=== PATIENT | female | born 1930 | race Asian ===

== ENCOUNTER 2018-01-23 15:10 | Inpatient (IN) | payer MEDICARE, OTHER ==
[~2018-01-23] VITALS: Ht 157.5 cm; Wt 87.5 kg
--- NOTE | 2018-01-23 20:45 | NUR ---
ADMITTED TO ARU FROM [facility] UNDER DR. YAN/ DR. LOZANO. WILL INITIATE ADMISSION ASSESSMENT. BELONGING LISTS REVIEWED. WILL CALL FOR ORDERS.
[2018-01-23] MEDS ORDERED: ACET325T53 PO (21:11)
[2018-01-23] MEDS ORDERED: ASPI81TA31 PO (21:11)
[2018-01-23] MEDS ORDERED: INSU100V10 SQ (21:19)
[2018-01-23] MEDS ORDERED: ERGO500014 PO (21:19)
[2018-01-23] MEDS ORDERED: FURO40TA5 PO (21:19)
[2018-01-23] MEDS ORDERED: ATOR10TA PO (21:19)
[2018-01-23] MEDS ORDERED: FOLI1TAB16 PO (21:19)
[2018-01-23] MEDS ORDERED: DOCU100C36 PO (21:19)
[2018-01-23] MEDS ORDERED: LEVO75TA7 PO (21:32)
[2018-01-23] MEDS ORDERED: NITR0.4T48 SL (21:32)
[2018-01-23] MEDS ORDERED: LOSA50TA21 PO (21:32)
[2018-01-23] MEDS ORDERED: POTA10TA15 PO (21:40)
[2018-01-23] MEDS ORDERED: POTA20TA10 PO (21:40)
[2018-01-23] MEDS ORDERED: RISP0.5T20 PO (21:40)
[2018-01-23] MEDS ORDERED: RIVA10TA PO (21:48)
[2018-01-23] MEDS ORDERED: ALBU18HF2 INH (21:48)
[2018-01-23] MEDS ORDERED: ALBU2.5V38 IH ×2 (21:48→21:54)
[2018-01-23 21:56] VITALS: BP 109/65
[2018-01-24] MEDS ORDERED: Z GUARD REMEDY PASTE 57 GM TUBE TOP PRN (01:30)
[2018-01-24 06:00] VITALS: BP 105/65
--- NOTE | 2018-01-24 06:52 | NUR ---
PT STATED SLEEPING WELL LAST NIGHT, IN NO ACUTE SIGN OF DISTRESS. SAFETY MEASURES MAINTAINED THROUGHOUT THE NIGHT.
[2018-01-24 07:46] VITALS: BP 143/33
[2018-01-24] MEDS: ACETAMINOPHEN 325 MG TABLET PO PRN (09:10)
[2018-01-24] MEDS ORDERED: INSULIN REGULAR, HUMAN 300 UNIT/3 ML VIAL SQ PRN (11:15)
[2018-01-24] MEDS ORDERED: DEXTROSE 50% 50 ML DISP.SYRIN IV PRN ×2 (11:15→15:15)
[2018-01-24] MEDS ORDERED: LEVOTHYROXINE SODIUM 75 MCG TABLET PO SCH (11:15)
[2018-01-24] MEDS ORDERED: ALBUTEROL SULFATE 2.5 MG/3 ML NEBU NEB PRN (11:15)
[2018-01-24] MEDS ORDERED: BLOOD SUGAR DIAGNOSTIC 1 EACH STRIP VI SCH (11:30)
[2018-01-24 12:56] VITALS: BP 126/39
[2018-01-24 13:29] VITALS: BP 114/53
[2018-01-24] MEDS: FUROSEMIDE 40 MG TABLET PO SCH ×2 (13:30→16:44)
[2018-01-24] MEDS: POTASSIUM CHLORIDE 20 MEQ TAB.PRT.SR PO SCH (13:30)
[2018-01-24] MEDS: LOSARTAN POTASSIUM 50 MG TABLET PO SCH ×2 (13:30→16:43)
[2018-01-24] MEDS: ASPIRIN 81 MG TAB.CHEW PO SCH (13:32)
[2018-01-24 14:36] LABS: BASOPHILS # (AUTO) 0.1 K/uL (0.0-8.0); EOSINOPHILS # (AUTO) 0.2 K/uL (0.0-0.7); HEMATOCRIT 31.6 % (31.2-41.9); HEMOGLOBIN 10.6 g/dL (10.9-14.3); LYMPHOCYTES # (AUTO) 1.6 K/uL (20.0-40.0); LYMPHOCYTES % (AUTO) 18.7 % (20.5-51.5); MEAN CORPUSCULAR HEMOGLOBIN 29.4 uug (24.7-32.8); MEAN CORPUSCULAR HGB CONC 34 g/dL (32.3-35.6); MEAN CORPUSCULAR VOLUME 87.7 fL (75.5-95.3); MONOCYTES # (AUTO) 0.8 K/uL (2.0-10.0); MONOCYTES % (AUTO) 8.9 % (0.0-11.0); NEUTROPHILS # (AUTO) 6.1 K/uL (1.8-8.9); NEUTROPHILS % (AUTO) 69.4 % (38.5-71.5); PLATELET COUNT (AUTO) 191 K/uL (179-408); WHITE BLOOD COUNT (AUTO) 8.8 K/uL (3.8-11.8)
[2018-01-24 14:51] LABS: ALANINE AMINOTRANSFERASE 19 U/L (14-59); ALKALINE PHOSPHATASE 62 U/L (50-136); ASPARTATE AMINOTRANSFERASE 15 U/L (15-37); BILIRUBIN,TOTAL 0.3 mg/dL (0.2-1.0); CARBON DIOXIDE 27 mmol/L (21-32); CHLORIDE 97 mmol/L (98-107); CREATININE 1.8 mg/dL (0.6-1.3); MAGNESIUM 2.3 mg/dL (1.8-2.4); PHOSPHOROUS 5.1 mg/dL (2.5-4.9); POTASSIUM 4.1 mmol/L (3.5-5.1); TOTAL PROTEIN, SERUM 6.8 g/dL (6.4-8.2); UREA NITROGEN, BLOOD 59 mg/dL (7-18)
--- NOTE | 2018-01-24 15:00 | NUR ---
Received call from [facility], laboratory with critical result of Glucose 306. Reported result to Raiza Boswell EGG SMELLER with new order to change the Humulin insulin from mild to moderate sliding scale coverage. Noted and carried out. Patient informed and agreed
[2018-01-24 15:02] LABS: GLUCOSE 306 mg/dL (74-106)
[2018-01-24 15:58] LABS: *BILIRUBIN,URIN NEGATIVE (NEGATIVE); *BLOOD, URINE 2+ (NEGATIVE); *KETONES,URINE NEGATIVE (NEGATIVE); *PROTEIN,URINE TRACE (NEGATIVE); *UROBILINOGEN,URINE 0.2 E.U./dl (NORMAL); LEUKOCYTE ESTERASE ,URINE 1+ (NEGATIVE); NITRITE, URINE NEGATIVE (NEGATIVE); PH,URINE 5.5 (5.0-8.0); UGLUCOSE 2+ (NEGATIVE)
[2018-01-24 16:00] LABS: THYROID STIMULATING HORMONE 1.305 mIU/mL (0.358-3.740)
[2018-01-24] MEDS: BLOOD SUGAR DIAGNOSTIC 1 EACH STRIP VI SCH ×2 (16:55→21:23)
[2018-01-24] MEDS ORDERED: LOSARTAN POTASSIUM 50 MG TABLET PO SCH (17:00)
[2018-01-24] MEDS ORDERED: RIVAROXABAN 10 MG TABLET PO SCH (17:00)
[2018-01-24] MEDS: risperiDONE 0.5 MG TABLET PO SCH (17:09)
[2018-01-24] MEDS: ATORVASTATIN 10 MG TABLET PO SCH (17:09)
[2018-01-24] MEDS: RIVAROXABAN 15 MG TABLET PO SCH (17:09)
[2018-01-24] MEDS: INSULIN REGULAR, HUMAN 300 UNIT/3 ML VIAL SQ PRN (17:11)
[2018-01-24 17:13] LABS: *CLARITY,URINE CLOUDY (CLEAR); *COLOR,URINE YELLOW (YELLOW)
[2018-01-24 17:15] LABS: BACTERIA,URINE MANY /HPF (NONE SEEN)
[2018-01-24 17:16] LABS: MUCUS,URINE FEW /LPF (0-FEW); SQUAMOUS EPITHELIAL CELL,UR MANY /HPF (NONE SEEN)
--- NOTE | 2018-01-24 17:38 | NUR ---
Nurse notes: patient alert and oriented x 4 able to make needs known with periods of forgetfulness. No SOB or distress noted. assessed for pain, medicated with Tylenol for mild pain- relieved. Skin assessed, off loaded heels with pillows. continually monitored vital signs and Raiza Boswell ORTHOPAEDIC NURSE aware of the blood pressure results. Held BP medications per Raiza Boswell, ORTHOPAEDIC NURSE. performed blood sugar checks as ordered- administered insulin as ordered per sliding scale. safety precautions observed. hourly rounding done, call light and telephone within reach at all times, bed alarm and bed brakes on for safety. Will endorse accordingly to incoming shift for continuity of care.
--- NOTE | 2018-01-24 19:10 | NUR ---
RECEIVED PT AWAKE, ALERT, AND ORIENTEDX3 PT SHOWS NO SIGNS OF DISTRESS. PT HAVE EPISODES OF FORGETFULNESS. PT CAN VERBALIZE HER NEEDS AND DEMANDING. CALL LIGHT WITHIN REACH, BED ALARM ON AND ON LOW POSITION, SIDE RAILS UPX2. WILL CONTINUE TO MONITOR
[2018-01-24 20:25] VITALS: BP 164/60
[2018-01-24] MEDS ORDERED: INSULIN DETEMIR 300 UNIT/3 ML CARTRIDGE SQ SCH (21:00)
[2018-01-24] MEDS: INSULIN DETEMIR 300 UNIT/3 ML CARTRIDGE SQ SCH (21:24)
[2018-01-24] MEDS: DOCUSATE SODIUM 100 MG CAPSULE PO SCH (21:25)
[2018-01-24] MEDS: INSULIN REGULAR, HUMAN 300 UNITS/3 ML VIAL SQ PRN (21:25)
[2018-01-24] MEDS ORDERED: CEPHALEXIN MONOHYDRATE 250 MG CAPSULE ONE (21:26)
[2018-01-24] MEDS: CEPHALEXIN MONOHYDRATE 250 MG CAPSULE PO SCH ×2 (21:32→22:00)
--- NOTE | 2018-01-24 22:00 | NUR ---
GAVE THE PT KEFLEX AT 2132H BECAUSE IT WAS FIRST ORDERED TO BE GIVEN AT 2029 THEN IT SHOWED THAT THERE'S 2200H KEFLEX TO BE GIVEN WHICH WAS ALREADY GIVEN. PT STABLE. WILL CONTINUE TO MONITOR.
[2018-01-25 06:00] VITALS: BP 170/58
[2018-01-25] MEDS: PANTOPRAZOLE SODIUM 40 MG TABLET.DR PO SCH (06:04)
[2018-01-25 06:12] VITALS: BP 129/50
--- NOTE | 2018-01-25 06:14 | NUR ---
PT SLEPT THROUGHOUT THE SHIFT. PT SHOWS NO SIGNS OF DISTRESS. PRESCRIBED MEDICATION GIVEN AND PT TOLERATED IT WELL.HOURLY ROUNDING DONE.WOUND CARE DONE. SAFETY AND COMFORT PROVIDED. ALL NEEDS ARE MET.WILL ENDORSE TO INCOMING NURSE.
[2018-01-25] MEDS ORDERED: CEPHALEXIN MONOHYDRATE 250 MG CAPSULE ONE (06:22)
[2018-01-25] MEDS: CEPHALEXIN MONOHYDRATE 250 MG CAPSULE PO SCH ×3 (06:30→21:05)
[2018-01-25] MEDS: BLOOD SUGAR DIAGNOSTIC 1 EACH STRIP VI SCH ×4 (06:33→21:09)
[2018-01-25] MEDS: INSULIN REGULAR, HUMAN 300 UNIT/3 ML VIAL SQ PRN ×4 (07:59→21:21)
[2018-01-25] MEDS: DOCUSATE SODIUM 100 MG CAPSULE PO SCH ×2 (08:00→21:05)
[2018-01-25] MEDS: FOLIC ACID 1 MG TABLET PO SCH (08:00)
[2018-01-25] MEDS: POTASSIUM CHLORIDE 20 MEQ TAB.PRT.SR PO SCH (08:01)
[2018-01-25] MEDS: LOSARTAN POTASSIUM 50 MG TABLET PO SCH ×2 (08:01→16:54)
[2018-01-25] MEDS: ASPIRIN 81 MG TAB.CHEW PO SCH (08:01)
[2018-01-25] MEDS: FUROSEMIDE 40 MG TABLET PO SCH ×2 (08:02→16:55)
--- NOTE | 2018-01-25 09:56 | NUR ---
SBAR report received, board updated. Pt assessed, no acute distress noted. Bed in locked and lowest position with side rails up x2. Pt assisted to sit up in wheelchair for breakfast. Pt compliant with routine morning medication administration, including insulin coverage. Plan for today discussed, including anticipated therapies for today. All comfort and safety measures implemented. Call light within reach. Will continue to monitor.
[2018-01-25] MEDS: ERGOCALCIFEROL 50,000 UNIT CAPSULE PO SCH (10:04)
[2018-01-25] MEDS: INSULIN DETEMIR 300 UNIT/3 ML CARTRIDGE SQ SCH ×2 (10:16→21:14)
[2018-01-25] MEDS: ACETAMINOPHEN 325 MG TABLET PO PRN ×2 (10:22→22:06)
--- NOTE | 2018-01-25 11:07 | NUR ---
WOUND CARE CONSULT: PT PRESENTS WITH SCARRING TO SACRUM AND BUTTOCKS AREA, PRESENT ON ADMISSION. PT ALSO NOTED TO HAVE SKIN STAINING OF BUTTOCKS. PT HAS HX OF PRESSURE ULCERS. ALL SKIN PROTECTION RECOMMENDATIONS MADE AND DISCUSSED WITH NURSING STAFF. IN AGREEMENT WITH PLAN OF CARE. CURRENT NEERAJ SCORE IS 15. Addendum: 01/25/18 at 1109 by JOSE MARTIN FRIED RN Amended: Links added.
[2018-01-25] MEDS: OMEGA-3 FATTY ACIDS/FISH OIL CAPSULE PO SCH ×2 (11:47→21:05)
[2018-01-25] MEDS: AMLODIPINE 5 MG TABLET PO SCH (11:48)
[2018-01-25] MEDS ORDERED: IPRATROPIUM BROMIDE 0.5 MG/2.5 ML NEBU NEB PRN (15:30)
[2018-01-25] MEDS: RIVAROXABAN 15 MG TABLET PO SCH (16:56)
[2018-01-25] MEDS: ATORVASTATIN 10 MG TABLET PO SCH (17:00)
[2018-01-25] MEDS: risperiDONE 0.5 MG TABLET PO SCH (17:00)
--- NOTE | 2018-01-25 18:29 | NUR ---
Pt clean, dry, and mepilex applied to sacral area. Pt assisted with transfer into back into bed and repositioned for comfort. All safety needs promptly attended to throughout this shift. Pt compliant with routine medication administration. BP medication held due to decreased 122/40, HR 68. No change in Pt status. Pt denies discomfort. Cooling measures such as an ice pack and wet wash cloth provided. Granddaughter visiting at bedside currently. Call light and personal belongings placed within reach. Will continue to monitor and endorse to oncoming journal entry audit clerk.
[2018-01-25 20:25] VITALS: BP 121/48
[2018-01-25] MEDS: ALBUTEROL SULFATE 2.5 MG/3 ML NEBU NEB SCH (20:52)
[2018-01-25] MEDS: IPRATROPIUM BROMIDE 0.5 MG/2.5 ML NEBU NEB SCH (20:52)
--- NOTE | 2018-01-25 23:22 | NUR ---
resting in bed. aaox3-4 forgetful at times. no acute distress noted. will monitor patient. kept comfortable, I & O monitored. needs attended. tolerated well. compliant with the meds. will monitor patient.
[2018-01-26] MEDS: ALBUTEROL SULFATE 2.5 MG/3 ML NEBU NEB SCH ×4 (01:30→20:14)
[2018-01-26] MEDS: IPRATROPIUM BROMIDE 0.5 MG/2.5 ML NEBU NEB SCH ×4 (01:30→20:14)
[2018-01-26] MEDS: CEPHALEXIN MONOHYDRATE 250 MG CAPSULE PO SCH ×3 (06:16→21:00)
[2018-01-26] MEDS: LEVOTHYROXINE SODIUM 75 MCG TABLET PO SCH (06:17)
[2018-01-26] MEDS: PANTOPRAZOLE SODIUM 40 MG TABLET.DR PO SCH (06:17)
[2018-01-26] MEDS: BLOOD SUGAR DIAGNOSTIC 1 EACH STRIP VI SCH ×4 (06:20→21:04)
--- NOTE | 2018-01-26 06:48 | NUR ---
quiet night. slept well. aaox2-3 forgetful at times. no acute distress noted. incontinent of urine x2 kept clean and dry. will monitor patient. denies any pain nor any discomfort.
[2018-01-26 07:38] LABS: BASOPHILS % (AUTO) 0.5 % (0.0-2.0); EOSINOPHILS # (AUTO) 0.1 K/uL (0.0-0.7); HEMATOCRIT 31.8 % (31.2-41.9); HEMOGLOBIN 10.5 g/dL (10.9-14.3); LYMPHOCYTES # (AUTO) 1.1 K/uL (20.0-40.0); LYMPHOCYTES % (AUTO) 15.8 % (20.5-51.5); MEAN CORPUSCULAR HGB CONC 33 g/dL (32.3-35.6); MONOCYTES # (AUTO) 0.7 K/uL (2.0-10.0); MONOCYTES % (AUTO) 9.6 % (0.0-11.0); NEUTROPHILS % (AUTO) 72.1 % (38.5-71.5); PLATELET COUNT (AUTO) 209 K/uL (179-408); RED BLOOD CELL COUNT(AUTO) 3.61 MIL/uL (3.63-4.92)
[2018-01-26 08:00] VITALS: BP 92/45
[2018-01-26] MEDS: DOCUSATE SODIUM 100 MG CAPSULE PO SCH ×2 (08:01→20:59)
[2018-01-26] MEDS: OMEGA-3 FATTY ACIDS/FISH OIL CAPSULE PO SCH ×2 (08:01→20:59)
[2018-01-26] MEDS: FOLIC ACID 1 MG TABLET PO SCH (08:01)
[2018-01-26] MEDS: ASPIRIN 81 MG TAB.CHEW PO SCH (08:01)
[2018-01-26] MEDS: FUROSEMIDE 40 MG TABLET PO SCH ×2 (08:01→17:28)
[2018-01-26] MEDS: POTASSIUM CHLORIDE 20 MEQ TAB.PRT.SR PO SCH (08:01)
[2018-01-26] MEDS: AMLODIPINE 5 MG TABLET PO SCH (08:02)
[2018-01-26] MEDS: LOSARTAN POTASSIUM 50 MG TABLET PO SCH ×2 (08:03→17:28)
[2018-01-26] MEDS: INSULIN REGULAR, HUMAN 300 UNIT/3 ML VIAL SQ PRN ×3 (08:04→17:26)
[2018-01-26 08:06] LABS: ALANINE AMINOTRANSFERASE 20 U/L (14-59); ALKALINE PHOSPHATASE 59 U/L (50-136); ASPARTATE AMINOTRANSFERASE 17 U/L (15-37); BILIRUBIN,TOTAL 0.5 mg/dL (0.2-1.0); CHLORIDE 104 mmol/L (98-107); CREATININE 1.6 mg/dL (0.6-1.3); MAGNESIUM 2.5 mg/dL (1.8-2.4); PHOSPHOROUS 4.4 mg/dL (2.5-4.9); POTASSIUM 4.1 mmol/L (3.5-5.1); TOTAL PROTEIN, SERUM 7.2 g/dL (6.4-8.2); UREA NITROGEN, BLOOD 60 mg/dL (7-18)
[2018-01-26] MEDS: INSULIN DETEMIR 300 UNIT/3 ML CARTRIDGE SQ SCH ×2 (08:06→21:10)
[2018-01-26 08:17] LABS: CARBON DIOXIDE 25 mmol/L (21-32)
[2018-01-26 09:42] LABS: GLUCOSE 164 mg/dL (74-106)
[2018-01-26 16:00] VITALS: BP 132/108
[2018-01-26] MEDS: ATORVASTATIN 10 MG TABLET PO SCH (17:28)
[2018-01-26] MEDS: risperiDONE 0.5 MG TABLET PO SCH (17:28)
[2018-01-26] MEDS: RIVAROXABAN 15 MG TABLET PO SCH (17:29)
--- NOTE | 2018-01-26 18:04 | NUR ---
pt stable throughout rhe day. pt given insulin as ordered. no new orders during the day. will endorse to machinist 2nd shift nurse.
[2018-01-26 19:30] VITALS: BP 165/60
[2018-01-26] MEDS: ACETAMINOPHEN 325 MG TABLET PO PRN (21:00)
[2018-01-26] MEDS: INSULIN REGULAR, HUMAN 300 UNITS/3 ML VIAL SQ PRN (21:08)
--- NOTE | 2018-01-26 22:39 | NUR ---
resting in bed aaox3-4 forgetful at times. patient very needy. no acute distress noted. kept comfortable. incontinent of urine x3 kept clean and dry. needs attended. VSS. will monitor patient.
[2018-01-27] MEDS: ALBUTEROL SULFATE 2.5 MG/3 ML NEBU NEB SCH ×4 (01:30→19:19)
[2018-01-27] MEDS: IPRATROPIUM BROMIDE 0.5 MG/2.5 ML NEBU NEB SCH ×4 (01:30→19:19)
[2018-01-27] MEDS: PANTOPRAZOLE SODIUM 40 MG TABLET.DR PO SCH (06:16)
[2018-01-27] MEDS: CEPHALEXIN MONOHYDRATE 250 MG CAPSULE PO SCH ×3 (06:16→21:23)
[2018-01-27] MEDS: LEVOTHYROXINE SODIUM 75 MCG TABLET PO SCH (06:16)
[2018-01-27] MEDS: BLOOD SUGAR DIAGNOSTIC 1 EACH STRIP VI SCH ×4 (06:22→21:56)
[2018-01-27 06:53] VITALS: BP 142/63
[2018-01-27 07:03] VITALS: BP 148/54
[2018-01-27 08:00] VITALS: BP 86/58
[2018-01-27] MEDS ORDERED: INSULIN GLARGINE,HUM 300 UNITS/3 ML CARTRIDGE SQ SCH (09:00)
[2018-01-27] MEDS: AMLODIPINE 5 MG TABLET PO SCH (09:04)
[2018-01-27] MEDS: FOLIC ACID 1 MG TABLET PO SCH (09:04)
[2018-01-27] MEDS: ASPIRIN 81 MG TAB.CHEW PO SCH (09:04)
[2018-01-27] MEDS: OMEGA-3 FATTY ACIDS/FISH OIL CAPSULE PO SCH ×2 (09:04→21:22)
[2018-01-27] MEDS: POTASSIUM CHLORIDE 20 MEQ TAB.PRT.SR PO SCH (09:04)
[2018-01-27] MEDS: FUROSEMIDE 40 MG TABLET PO SCH ×2 (09:04→17:03)
[2018-01-27] MEDS: DOCUSATE SODIUM 100 MG CAPSULE PO SCH ×2 (09:04→21:21)
[2018-01-27] MEDS: LOSARTAN POTASSIUM 50 MG TABLET PO SCH ×2 (09:05→17:03)
[2018-01-27] MEDS: INSULIN DETEMIR 300 UNIT/3 ML CARTRIDGE SQ SCH ×2 (09:19→21:38)
[2018-01-27] MEDS: ACETAMINOPHEN 325 MG TABLET PO PRN (12:06)
[2018-01-27 16:17] VITALS: BP 154/67
[2018-01-27] MEDS: risperiDONE 0.5 MG TABLET PO SCH (17:03)
[2018-01-27] MEDS: ATORVASTATIN 10 MG TABLET PO SCH (17:03)
[2018-01-27] MEDS: RIVAROXABAN 15 MG TABLET PO SCH (17:04)
[2018-01-27] MEDS: INSULIN REGULAR, HUMAN 300 UNIT/3 ML VIAL SQ PRN (17:05)
[2018-01-27 19:30] VITALS: BP 143/62
[2018-01-27] MEDS: INSULIN REGULAR, HUMAN 300 UNITS/3 ML VIAL SQ PRN (21:50)
[2018-01-28] MEDS: ALBUTEROL SULFATE 2.5 MG/3 ML NEBU NEB SCH ×4 (02:00→19:30)
[2018-01-28] MEDS: IPRATROPIUM BROMIDE 0.5 MG/2.5 ML NEBU NEB SCH ×4 (02:00→19:30)
[2018-01-28] MEDS: ACETAMINOPHEN 325 MG TABLET PO PRN ×2 (04:32→08:54)
[2018-01-28] MEDS: LEVOTHYROXINE SODIUM 75 MCG TABLET PO SCH (06:30)
[2018-01-28] MEDS: CEPHALEXIN MONOHYDRATE 250 MG CAPSULE PO SCH ×3 (06:31→21:23)
[2018-01-28] MEDS: PANTOPRAZOLE SODIUM 40 MG TABLET.DR PO SCH (06:31)
[2018-01-28] MEDS: BLOOD SUGAR DIAGNOSTIC 1 EACH STRIP VI SCH ×4 (06:31→21:20)
[2018-01-28 08:17] VITALS: BP 150/55
[2018-01-28] MEDS: ASPIRIN 81 MG TAB.CHEW PO SCH (08:44)
[2018-01-28] MEDS: POTASSIUM CHLORIDE 20 MEQ TAB.PRT.SR PO SCH (08:44)
[2018-01-28] MEDS: FUROSEMIDE 40 MG TABLET PO SCH ×2 (08:44→17:04)
[2018-01-28] MEDS: DOCUSATE SODIUM 100 MG CAPSULE PO SCH ×2 (08:44→21:16)
[2018-01-28] MEDS: FOLIC ACID 1 MG TABLET PO SCH (08:44)
[2018-01-28] MEDS: OMEGA-3 FATTY ACIDS/FISH OIL CAPSULE PO SCH ×2 (08:44→21:16)
[2018-01-28] MEDS: AMLODIPINE 5 MG TABLET PO SCH (08:45)
[2018-01-28] MEDS: LOSARTAN POTASSIUM 50 MG TABLET PO SCH ×2 (08:45→17:00)
[2018-01-28] MEDS: INSULIN DETEMIR 300 UNIT/3 ML CARTRIDGE SQ SCH ×2 (08:51→21:23)
[2018-01-28] MEDS: INSULIN REGULAR, HUMAN 300 UNIT/3 ML VIAL SQ PRN ×3 (08:56→17:08)
[2018-01-28] MEDS ORDERED: INSULIN GLARGINE,HUM 300 UNITS/3 ML CARTRIDGE SQ SCH (09:00)
[2018-01-28 16:52] VITALS: BP 128/49
[2018-01-28] MEDS: risperiDONE 0.5 MG TABLET PO SCH (17:04)
[2018-01-28] MEDS: ATORVASTATIN 10 MG TABLET PO SCH (17:04)
[2018-01-28] MEDS: RIVAROXABAN 15 MG TABLET PO SCH (17:06)
--- NOTE | 2018-01-28 18:36 | NUR ---
SBAR report received this morning, board updated. Pt assessed. No acute distress noted. VS WNL. Pt compliant with all routine medication administration. All comfort and safety needs attended to promptly throughout this shift. Call light and personal items placed within reach. Pt granddaughter visiting at the bedside currently. Will continue to monitor and endorse to oncoming manufacturing shift supervisor.
--- NOTE | 2018-01-28 19:25 | NUR ---
Received patient lying comfortably in bed. No complaint presented at this time. Safety measures and fall precaution maintained. Continue care as planned.
[2018-01-28 20:31] VITALS: BP 119/55
[2018-01-28] MEDS: INSULIN REGULAR, HUMAN 300 UNITS/3 ML VIAL SQ PRN (21:21)
[2018-01-29] MEDS: ALBUTEROL SULFATE 2.5 MG/3 ML NEBU NEB SCH ×4 (00:41→19:07)
[2018-01-29] MEDS: IPRATROPIUM BROMIDE 0.5 MG/2.5 ML NEBU NEB SCH ×4 (00:41→19:07)
[2018-01-29] MEDS: PANTOPRAZOLE SODIUM 40 MG TABLET.DR PO SCH (06:14)
[2018-01-29] MEDS: CEPHALEXIN MONOHYDRATE 250 MG CAPSULE PO SCH ×3 (06:14→21:04)
[2018-01-29] MEDS: LEVOTHYROXINE SODIUM 75 MCG TABLET PO SCH (06:14)
[2018-01-29] MEDS: BLOOD SUGAR DIAGNOSTIC 1 EACH STRIP VI SCH ×4 (06:17→21:04)
--- NOTE | 2018-01-29 06:58 | NUR ---
Shift End Report: VS stable. Slept good. Awakened at 0200 put in chair as per request and put it back after 30 minutes. At 0600 starts screaming, talking too loud wants to be back to the chair again and can not wait. Refused to have the diaper changed at this time. Presented complaint that she has cough and wants the nurse to buy her cough medication right away. All needs attended and met. No significant event reported. No fall/injury. Continue care as planned.
[2018-01-29 07:47] LABS: BASOPHILS # (AUTO) 0.1 K/uL (0.0-8.0); BASOPHILS % (AUTO) 0.7 % (0.0-2.0); EOSINOPHILS # (AUTO) 0.3 K/uL (0.0-0.7); EOSINOPHILS % (AUTO) 3.7 % (0.0-7.0); HEMATOCRIT 33.2 % (31.2-41.9); HEMOGLOBIN 10.8 g/dL (10.9-14.3); LYMPHOCYTES # (AUTO) 1.4 K/uL (20.0-40.0); LYMPHOCYTES % (AUTO) 19.2 % (20.5-51.5); MEAN CORPUSCULAR HEMOGLOBIN 28.8 uug (24.7-32.8); MEAN CORPUSCULAR HGB CONC 33 g/dL (32.3-35.6); MEAN CORPUSCULAR VOLUME 88.6 fL (75.5-95.3); MONOCYTES # (AUTO) 0.8 K/uL (2.0-10.0); MONOCYTES % (AUTO) 10.9 % (0.0-11.0); NEUTROPHILS # (AUTO) 4.8 K/uL (1.8-8.9); NEUTROPHILS % (AUTO) 65.5 % (38.5-71.5); PLATELET COUNT (AUTO) 226 K/uL (179-408); RED BLOOD CELL COUNT(AUTO) 3.74 MIL/uL (3.63-4.92); WHITE BLOOD COUNT (AUTO) 7.3 K/uL (3.8-11.8)
[2018-01-29 07:55] LABS: ALANINE AMINOTRANSFERASE 20 U/L (14-59); ALKALINE PHOSPHATASE 53 U/L (50-136); ASPARTATE AMINOTRANSFERASE 20 U/L (15-37); BILIRUBIN,TOTAL 0.5 mg/dL (0.2-1.0); CARBON DIOXIDE 25 mmol/L (21-32); CHLORIDE 101 mmol/L (98-107); CREATININE 1.8 mg/dL (0.6-1.3); GLUCOSE 168 mg/dL (74-106); MAGNESIUM 2.5 mg/dL (1.8-2.4); PHOSPHOROUS 4.8 mg/dL (2.5-4.9); TOTAL PROTEIN, SERUM 7.5 g/dL (6.4-8.2); UREA NITROGEN, BLOOD 59 mg/dL (7-18)
--- NOTE | 2018-01-29 07:59 | NUR ---
SBAR report received, board updated. Pt assessed AAO. No acute distress or SOB noted at this time. No c/o pain. All safety and comfort needs met. Bed in locked and lowest position with side rails up x2. Call light placed within reach. Will continue to monitor.
[2018-01-29 08:01] VITALS: BP 133/62
[2018-01-29] MEDS: FOLIC ACID 1 MG TABLET PO SCH (08:08)
[2018-01-29] MEDS: AMLODIPINE 5 MG TABLET PO SCH (08:08)
[2018-01-29] MEDS: OMEGA-3 FATTY ACIDS/FISH OIL CAPSULE PO SCH ×2 (08:08→21:00)
[2018-01-29] MEDS: FUROSEMIDE 40 MG TABLET PO SCH ×2 (08:08→17:01)
[2018-01-29] MEDS: ASPIRIN 81 MG TAB.CHEW PO SCH (08:09)
[2018-01-29] MEDS: POTASSIUM CHLORIDE 20 MEQ TAB.PRT.SR PO SCH (08:09)
[2018-01-29] MEDS: LOSARTAN POTASSIUM 50 MG TABLET PO SCH ×2 (08:09→17:08)
[2018-01-29] MEDS: DOCUSATE SODIUM 100 MG CAPSULE PO SCH ×2 (08:09→21:00)
[2018-01-29] MEDS: INSULIN DETEMIR 300 UNIT/3 ML CARTRIDGE SQ SCH ×2 (08:12→21:00)
[2018-01-29] MEDS: INSULIN REGULAR, HUMAN 300 UNIT/3 ML VIAL SQ PRN ×3 (08:16→17:08)
[2018-01-29] MEDS: ACETAMINOPHEN 325 MG TABLET PO PRN (13:15)
[2018-01-29] MEDS: risperiDONE 0.5 MG TABLET PO SCH (17:01)
[2018-01-29] MEDS: ATORVASTATIN 10 MG TABLET PO SCH (17:01)
[2018-01-29] MEDS: RIVAROXABAN 15 MG TABLET PO SCH (17:09)
[2018-01-29] MEDS ORDERED: GUAIFENESIN SUGAR FREE 100 MG/5 ML UDC PO PRN (17:45)
--- NOTE | 2018-01-29 19:35 | NUR ---
Received pt in bed, appearing to be asleep but easily arousable to verbal stimuli and light touch. No acute distress noted. Denies pain or discomfort at this time. Verbally responsive and able to make needs known. All safety measures and fall precautions maintained. Call light and all personal belongings within reach. Daughter at bedside. Will continue to monitor.
[2018-01-29 20:54] VITALS: BP 108/50
[2018-01-29 20:55] VITALS: BP 108/50
[2018-01-29] MEDS: INSULIN REGULAR, HUMAN 300 UNITS/3 ML VIAL SQ PRN (21:11)
--- NOTE | 2018-01-29 21:49 | NUR ---
Levemir 20 units [facility] non-admin due to medication not being available. Osmany, Cycle Manager aware. Explained to patient and patient verbalized understanding. Will continue to monitor. Safety maintained. Initial sugar check 256, covered with sliding scale insulin.
[2018-01-30] MEDS: ALBUTEROL SULFATE 2.5 MG/3 ML NEBU NEB SCH ×5 (01:29→22:01)
[2018-01-30] MEDS: IPRATROPIUM BROMIDE 0.5 MG/2.5 ML NEBU NEB SCH ×5 (01:29→22:01)
[2018-01-30 06:03] VITALS: BP 139/69
[2018-01-30] MEDS: PANTOPRAZOLE SODIUM 40 MG TABLET.DR PO SCH (06:22)
[2018-01-30] MEDS: LEVOTHYROXINE SODIUM 75 MCG TABLET PO SCH (06:22)
[2018-01-30] MEDS: CEPHALEXIN MONOHYDRATE 250 MG CAPSULE PO SCH ×3 (06:22→21:18)
[2018-01-30] MEDS: BLOOD SUGAR DIAGNOSTIC 1 EACH STRIP VI SCH ×4 (06:35→21:23)
[2018-01-30 07:59] LABS: BASOPHILS # (AUTO) 0.1 K/uL (0.0-8.0); BASOPHILS % (AUTO) 0.6 % (0.0-2.0); EOSINOPHILS # (AUTO) 0.2 K/uL (0.0-0.7); EOSINOPHILS % (AUTO) 2.7 % (0.0-7.0); HEMATOCRIT 32.7 % (31.2-41.9); HEMOGLOBIN 10.8 g/dL (10.9-14.3); LYMPHOCYTES # (AUTO) 1.8 K/uL (20.0-40.0); LYMPHOCYTES % (AUTO) 19.9 % (20.5-51.5); MEAN CORPUSCULAR HEMOGLOBIN 29.1 uug (24.7-32.8); MEAN CORPUSCULAR HGB CONC 33 g/dL (32.3-35.6); MEAN CORPUSCULAR VOLUME 88.3 fL (75.5-95.3); MONOCYTES # (AUTO) 0.9 K/uL (2.0-10.0); MONOCYTES % (AUTO) 9.6 % (0.0-11.0); NEUTROPHILS % (AUTO) 67.2 % (38.5-71.5); PLATELET COUNT (AUTO) 216 K/uL (179-408)
[2018-01-30 08:00] VITALS: BP 90/58
[2018-01-30] MEDS: OMEGA-3 FATTY ACIDS/FISH OIL CAPSULE PO SCH ×2 (08:05→21:18)
[2018-01-30] MEDS: FOLIC ACID 1 MG TABLET PO SCH (08:05)
[2018-01-30] MEDS: ASPIRIN 81 MG TAB.CHEW PO SCH (08:05)
[2018-01-30] MEDS: FUROSEMIDE 40 MG TABLET PO SCH ×2 (08:05→16:49)
[2018-01-30] MEDS: DOCUSATE SODIUM 100 MG CAPSULE PO SCH ×2 (08:05→21:18)
[2018-01-30] MEDS: POTASSIUM CHLORIDE 20 MEQ TAB.PRT.SR PO SCH (08:05)
[2018-01-30] MEDS: INSULIN REGULAR, HUMAN 300 UNIT/3 ML VIAL SQ PRN ×3 (08:12→17:15)
[2018-01-30 08:14] LABS: ALANINE AMINOTRANSFERASE 19 U/L (14-59); ALKALINE PHOSPHATASE 55 U/L (50-136); ASPARTATE AMINOTRANSFERASE 13 U/L (15-37); BILIRUBIN,TOTAL 0.4 mg/dL (0.2-1.0); CARBON DIOXIDE 26 mmol/L (21-32); CHLORIDE 102 mmol/L (98-107); CREATININE 1.9 mg/dL (0.6-1.3); GLUCOSE 274 mg/dL (74-106); MAGNESIUM 2.4 mg/dL (1.8-2.4); PHOSPHOROUS 4.9 mg/dL (2.5-4.9); POTASSIUM 3.8 mmol/L (3.5-5.1); TOTAL PROTEIN, SERUM 7.2 g/dL (6.4-8.2); UREA NITROGEN, BLOOD 66 mg/dL (7-18)
[2018-01-30] MEDS: ACETAMINOPHEN 325 MG TABLET PO PRN ×2 (08:24→16:50)
[2018-01-30] MEDS: INSULIN DETEMIR 300 UNIT/3 ML CARTRIDGE SQ SCH ×2 (08:26→21:25)
--- NOTE | 2018-01-30 08:42 | NUR ---
SBAR report received, board updated. Pt assessed, no acute distress. Pt complaint with medication administration and care. All needs attended to at this time. Bed in locked and lowest position with call light in reach. Will continue to monitor.
[2018-01-30] MEDS: AMLODIPINE 5 MG TABLET PO SCH (09:00)
[2018-01-30] MEDS: LOSARTAN POTASSIUM 50 MG TABLET PO SCH ×2 (09:00→16:49)
[2018-01-30 16:00] VITALS: BP 154/63
--- NOTE | 2018-01-30 17:01 | NUR ---
INTERDISCIPLINARY TEAM CONFERENCE
[2018-01-30] MEDS: ATORVASTATIN 10 MG TABLET PO SCH (17:11)
[2018-01-30] MEDS: risperiDONE 0.5 MG TABLET PO SCH (17:11)
[2018-01-30] MEDS: RIVAROXABAN 15 MG TABLET PO SCH (17:15)
--- NOTE | 2018-01-30 19:10 | NUR ---
Received patient sound asleep during initial rounds. No s/s of respiratory distress noted. Safety measures and fall precaution maintained. Continue plan of care.
[2018-01-30 20:14] VITALS: BP 123/43
[2018-01-30] MEDS: INSULIN REGULAR, HUMAN 300 UNITS/3 ML VIAL SQ PRN (21:31)
--- NOTE | 2018-01-30 23:10 | NUR ---
Awakened screaming, wants to have her diaper changed.
[2018-01-31] MEDS: IPRATROPIUM BROMIDE 0.5 MG/2.5 ML NEBU NEB SCH ×4 (02:44→20:15)
[2018-01-31] MEDS: ALBUTEROL SULFATE 2.5 MG/3 ML NEBU NEB SCH ×4 (02:44→20:15)
[2018-01-31] MEDS: PANTOPRAZOLE SODIUM 40 MG TABLET.DR PO SCH (05:45)
[2018-01-31] MEDS: LEVOTHYROXINE SODIUM 75 MCG TABLET PO SCH (05:45)
[2018-01-31] MEDS: CEPHALEXIN MONOHYDRATE 250 MG CAPSULE PO SCH ×2 (05:45→16:25)
[2018-01-31] MEDS: BLOOD SUGAR DIAGNOSTIC 1 EACH STRIP VI SCH ×4 (05:49→20:53)
[2018-01-31 06:02] VITALS: BP 108/56
--- NOTE | 2018-01-31 06:38 | NUR ---
Shift End Report: VS stable. Still very needy and demanding, very inpatient when it comes to her needs. All needs attended and met. No complaint of pain. No fall/injury. No respiratory distress. Continue care as planned.
[2018-01-31] MEDS: LOSARTAN POTASSIUM 50 MG TABLET PO SCH ×2 (08:25→16:25)
[2018-01-31] MEDS: OMEGA-3 FATTY ACIDS/FISH OIL CAPSULE PO SCH ×2 (08:25→20:53)
[2018-01-31] MEDS: POTASSIUM CHLORIDE 20 MEQ TAB.PRT.SR PO SCH (08:25)
[2018-01-31] MEDS: DOCUSATE SODIUM 100 MG CAPSULE PO SCH ×2 (08:25→20:53)
[2018-01-31] MEDS: AMLODIPINE 5 MG TABLET PO SCH (08:26)
[2018-01-31] MEDS: FUROSEMIDE 40 MG TABLET PO SCH ×2 (08:26→16:24)
[2018-01-31] MEDS: ASPIRIN 81 MG TAB.CHEW PO SCH (08:27)
[2018-01-31] MEDS: FOLIC ACID 1 MG TABLET PO SCH (08:27)
[2018-01-31] MEDS: INSULIN DETEMIR 300 UNIT/3 ML CARTRIDGE SQ SCH ×2 (08:31→20:56)
[2018-01-31 08:32] LABS: BASOPHILS # (AUTO) 0.1 K/uL (0.0-8.0); BASOPHILS % (AUTO) 0.8 % (0.0-2.0); EOSINOPHILS # (AUTO) 0.3 K/uL (0.0-0.7); EOSINOPHILS % (AUTO) 2.9 % (0.0-7.0); HEMATOCRIT 32.6 % (31.2-41.9); HEMOGLOBIN 10.7 g/dL (10.9-14.3); LYMPHOCYTES # (AUTO) 1.3 K/uL (20.0-40.0); LYMPHOCYTES % (AUTO) 14.7 % (20.5-51.5); MEAN CORPUSCULAR HEMOGLOBIN 28.9 uug (24.7-32.8); MEAN CORPUSCULAR HGB CONC 33 g/dL (32.3-35.6); MEAN CORPUSCULAR VOLUME 88.4 fL (75.5-95.3); MONOCYTES # (AUTO) 0.8 K/uL (2.0-10.0); MONOCYTES % (AUTO) 8.8 % (0.0-11.0); NEUTROPHILS # (AUTO) 6.6 K/uL (1.8-8.9); NEUTROPHILS % (AUTO) 72.8 % (38.5-71.5); PLATELET COUNT (AUTO) 237 K/uL (179-408); RED BLOOD CELL COUNT(AUTO) 3.69 MIL/uL (3.63-4.92)
[2018-01-31 08:37] VITALS: BP 137/50
[2018-01-31 08:46] LABS: ALANINE AMINOTRANSFERASE 22 U/L (14-59); ALKALINE PHOSPHATASE 54 U/L (50-136); ASPARTATE AMINOTRANSFERASE 13 U/L (15-37); BILIRUBIN,TOTAL 0.4 mg/dL (0.2-1.0); CARBON DIOXIDE 27 mmol/L (21-32); CHLORIDE 100 mmol/L (98-107); CREATININE 1.7 mg/dL (0.6-1.3); GLUCOSE 180 mg/dL (74-106); MAGNESIUM 2.5 mg/dL (1.8-2.4); PHOSPHOROUS 4.2 mg/dL (2.5-4.9); POTASSIUM 3.8 mmol/L (3.5-5.1); TOTAL PROTEIN, SERUM 7.7 g/dL (6.4-8.2); UREA NITROGEN, BLOOD 66 mg/dL (7-18)
[2018-01-31] MEDS: ACETAMINOPHEN 325 MG TABLET PO PRN (16:13)
[2018-01-31] MEDS: risperiDONE 0.5 MG TABLET PO SCH (16:14)
[2018-01-31] MEDS: ATORVASTATIN 10 MG TABLET PO SCH (16:24)
[2018-01-31] MEDS: INSULIN REGULAR, HUMAN 300 UNIT/3 ML VIAL SQ PRN (16:35)
[2018-01-31] MEDS: RIVAROXABAN 15 MG TABLET PO SCH (16:44)
[2018-01-31 20:40] VITALS: BP 92/54
[2018-01-31] MEDS: INSULIN REGULAR, HUMAN 300 UNITS/3 ML VIAL SQ PRN (20:58)
[2018-02-01] MEDS: IPRATROPIUM BROMIDE 0.5 MG/2.5 ML NEBU NEB SCH ×4 (01:55→19:10)
[2018-02-01] MEDS: ALBUTEROL SULFATE 2.5 MG/3 ML NEBU NEB SCH ×4 (01:55→19:10)
[2018-02-01] MEDS: BLOOD SUGAR DIAGNOSTIC 1 EACH STRIP VI SCH ×4 (05:00→21:46)
[2018-02-01] MEDS: LEVOTHYROXINE SODIUM 75 MCG TABLET PO SCH (05:02)
[2018-02-01] MEDS: PANTOPRAZOLE SODIUM 40 MG TABLET.DR PO SCH (05:02)
[2018-02-01 05:19] VITALS: BP 95/64
--- NOTE | 2018-02-01 05:43 | NUR ---
Shift End Report: Slept good. Still needy, demanding, inpatient. No complaint of pain presented. Required 1-2 people assist when OOB. Activity tolerance slightly improving. No SOB/SOBOE. No fall/injury. Safety measures and fall precaution maintained at all times. Continue care as planned.
[2018-02-01 08:00] VITALS: BP 141/46
[2018-02-01 08:10] LABS: CARBON DIOXIDE 26 mmol/L (21-32); CHLORIDE 101 mmol/L (98-107); CREATININE 1.5 mg/dL (0.6-1.3); GLUCOSE 239 mg/dL (74-106); POTASSIUM 3.9 mmol/L (3.5-5.1); UREA NITROGEN, BLOOD 57 mg/dL (7-18)
[2018-02-01] MEDS: OMEGA-3 FATTY ACIDS/FISH OIL CAPSULE PO SCH ×2 (08:27→21:43)
[2018-02-01] MEDS: ASPIRIN 81 MG TAB.CHEW PO SCH (08:27)
[2018-02-01] MEDS: FUROSEMIDE 40 MG TABLET PO SCH ×2 (08:27→17:06)
[2018-02-01] MEDS: FOLIC ACID 1 MG TABLET PO SCH (08:27)
[2018-02-01] MEDS: DOCUSATE SODIUM 100 MG CAPSULE PO SCH ×2 (08:28→21:43)
[2018-02-01] MEDS: AMLODIPINE 5 MG TABLET PO SCH (08:28)
[2018-02-01] MEDS: LOSARTAN POTASSIUM 50 MG TABLET PO SCH ×2 (08:28→17:05)
[2018-02-01] MEDS: POTASSIUM CHLORIDE 20 MEQ TAB.PRT.SR PO SCH (08:28)
[2018-02-01] MEDS: ERGOCALCIFEROL 50,000 UNIT CAPSULE PO SCH (08:57)
[2018-02-01] MEDS: INSULIN DETEMIR 300 UNIT/3 ML CARTRIDGE SQ SCH ×2 (09:35→21:49)
[2018-02-01] MEDS: INSULIN REGULAR, HUMAN 300 UNIT/3 ML VIAL SQ PRN (12:14)
[2018-02-01] MEDS: ACETAMINOPHEN 325 MG TABLET PO PRN ×2 (12:49→23:12)
--- NOTE | 2018-02-01 13:53 | NUR ---
INTERDISCIPLINARY TEAM CONFERENCE
[2018-02-01 16:00] VITALS: BP 143/50
[2018-02-01] MEDS: risperiDONE 0.5 MG TABLET PO SCH (17:05)
[2018-02-01] MEDS: RIVAROXABAN 15 MG TABLET PO SCH (17:05)
[2018-02-01] MEDS: ATORVASTATIN 10 MG TABLET PO SCH (17:06)
[2018-02-01 20:05] VITALS: BP 128/50
[2018-02-01] MEDS: INSULIN REGULAR, HUMAN 300 UNITS/3 ML VIAL SQ PRN (21:50)
[2018-02-02] MEDS: IPRATROPIUM BROMIDE 0.5 MG/2.5 ML NEBU NEB SCH ×4 (01:21→19:02)
[2018-02-02] MEDS: ALBUTEROL SULFATE 2.5 MG/3 ML NEBU NEB SCH ×4 (01:21→19:02)
--- NOTE | 2018-02-02 03:49 | NUR ---
Patient received at bed Awake and Alert Oriented x 3. No acute distress or SOB was noted. Pain assessed and reassessed after pain medication. Meds given as ordered. had a good sleep throughout the night. All needed attended and anticipated. Bed in low position, side rails up x2, alarm and brake on. Call light and personal belongings within reach. Continue to monitor and will endorse to morning shift accordingly.
[2018-02-02 05:00] VITALS: BP 144/51
[2018-02-02] MEDS: LEVOTHYROXINE SODIUM 75 MCG TABLET PO SCH (06:49)
[2018-02-02] MEDS: PANTOPRAZOLE SODIUM 40 MG TABLET.DR PO SCH (06:49)
[2018-02-02] MEDS: BLOOD SUGAR DIAGNOSTIC 1 EACH STRIP VI SCH ×4 (06:53→20:48)
[2018-02-02 07:06] LABS: CARBON DIOXIDE 25 mmol/L (21-32); CHLORIDE 105 mmol/L (98-107); CREATININE 1.6 mg/dL (0.6-1.3); GLUCOSE 235 mg/dL (74-106); POTASSIUM 4.6 mmol/L (3.5-5.1); UREA NITROGEN, BLOOD 57 mg/dL (7-18)
--- NOTE | 2018-02-02 08:00 | NUR ---
Patient received in bed Awake and Alert Oriented x 3. No acute distress or SOB was noted. No c/o Pain. Bed in low position, side rails up x2, alarm and brake on. Call light within reach. Continue to monitor.
[2018-02-02] MEDS: OMEGA-3 FATTY ACIDS/FISH OIL CAPSULE PO SCH ×2 (08:49→20:49)
[2018-02-02] MEDS: FUROSEMIDE 40 MG TABLET PO SCH ×2 (08:49→17:32)
[2018-02-02] MEDS: AMLODIPINE 5 MG TABLET PO SCH (08:50)
[2018-02-02] MEDS: LOSARTAN POTASSIUM 50 MG TABLET PO SCH ×2 (08:51→17:36)
[2018-02-02] MEDS: POTASSIUM CHLORIDE 20 MEQ TAB.PRT.SR PO SCH (08:51)
[2018-02-02] MEDS: DOCUSATE SODIUM 100 MG CAPSULE PO SCH ×2 (08:51→20:49)
[2018-02-02] MEDS: FOLIC ACID 1 MG TABLET PO SCH (08:51)
[2018-02-02] MEDS: ASPIRIN 81 MG TAB.CHEW PO SCH (08:51)
[2018-02-02] MEDS: INSULIN DETEMIR 300 UNIT/3 ML CARTRIDGE SQ SCH ×2 (08:55→20:51)
[2018-02-02 09:44] VITALS: BP 159/66
[2018-02-02] MEDS: INSULIN REGULAR, HUMAN 300 UNIT/3 ML VIAL SQ PRN ×2 (11:15→16:59)
[2018-02-02] MEDS: RIVAROXABAN 15 MG TABLET PO SCH (17:35)
[2018-02-02] MEDS: risperiDONE 0.5 MG TABLET PO SCH (17:38)
[2018-02-02] MEDS: ATORVASTATIN 10 MG TABLET PO SCH (17:38)
--- NOTE | 2018-02-02 19:40 | NUR ---
PATIENT SITTING ON THE W/C AWAKE. REQUESTING TO GO BACK TO BED. PLACED BACK TO BED WITH PERSON ASSISTANCE ALL NEEDS MET. SAFETY [id number] OBSERVED WILL CONTINUE TO MONITOR
[2018-02-02 20:00] VITALS: BP 137/53
[2018-02-02] MEDS: INSULIN REGULAR, HUMAN 300 UNITS/3 ML VIAL SQ PRN (20:52)
[2018-02-03] MEDS: ALBUTEROL SULFATE 2.5 MG/3 ML NEBU NEB SCH ×4 (01:10→19:11)
[2018-02-03] MEDS: IPRATROPIUM BROMIDE 0.5 MG/2.5 ML NEBU NEB SCH ×4 (01:10→19:11)
[2018-02-03] MEDS: ACETAMINOPHEN 325 MG TABLET PO PRN ×2 (01:20→21:23)
[2018-02-03 05:51] VITALS: BP 156/66
[2018-02-03] MEDS: PANTOPRAZOLE SODIUM 40 MG TABLET.DR PO SCH (06:40)
[2018-02-03] MEDS: LEVOTHYROXINE SODIUM 75 MCG TABLET PO SCH (06:40)
[2018-02-03] MEDS: BLOOD SUGAR DIAGNOSTIC 1 EACH STRIP VI SCH ×4 (06:41→20:53)
--- NOTE | 2018-02-03 07:07 | NUR ---
PATIENT AWAKE ON BED. SLEPT FOR ABOUT 4 HRS DURING THE SHIFT . KEPT THE PATIENT CLEAN AND DRY. PATIENT HAD ONE BM DURING THE SHIFT . BS CHECK DONE WITH THE RESULT 180 SAFETY MEASURES OBSERVED.
[2018-02-03 07:31] LABS: CARBON DIOXIDE 27 mmol/L (21-32); CHLORIDE 103 mmol/L (98-107); CREATININE 1.6 mg/dL (0.6-1.3); GLUCOSE 207 mg/dL (74-106); POTASSIUM 4.3 mmol/L (3.5-5.1); UREA NITROGEN, BLOOD 55 mg/dL (7-18)
[2018-02-03] MEDS: ASPIRIN 81 MG TAB.CHEW PO SCH (08:47)
[2018-02-03] MEDS: POTASSIUM CHLORIDE 20 MEQ TAB.PRT.SR PO SCH (08:47)
[2018-02-03] MEDS: DOCUSATE SODIUM 100 MG CAPSULE PO SCH ×2 (08:47→20:47)
[2018-02-03] MEDS: FOLIC ACID 1 MG TABLET PO SCH (08:47)
[2018-02-03] MEDS: LOSARTAN POTASSIUM 50 MG TABLET PO SCH ×2 (08:49→16:46)
[2018-02-03] MEDS: OMEGA-3 FATTY ACIDS/FISH OIL CAPSULE PO SCH ×2 (08:49→20:47)
[2018-02-03] MEDS: AMLODIPINE 5 MG TABLET PO SCH (08:49)
[2018-02-03] MEDS: FUROSEMIDE 40 MG TABLET PO SCH ×2 (08:50→16:39)
[2018-02-03] MEDS: INSULIN DETEMIR 300 UNIT/3 ML CARTRIDGE SQ SCH ×2 (08:51→20:50)
[2018-02-03 09:42] VITALS: BP 131/49
[2018-02-03] MEDS: INSULIN REGULAR, HUMAN 300 UNITS/3 ML VIAL SQ PRN ×2 (11:59→20:53)
[2018-02-03] MEDS: risperiDONE 0.5 MG TABLET PO SCH (16:39)
[2018-02-03] MEDS: ATORVASTATIN 10 MG TABLET PO SCH (16:39)
[2018-02-03] MEDS: RIVAROXABAN 15 MG TABLET PO SCH (16:46)
[2018-02-03] MEDS: INSULIN REGULAR, HUMAN 300 UNIT/3 ML VIAL SQ PRN (16:48)
--- NOTE | 2018-02-03 20:00 | NUR ---
Patient received at bed Awake and Alert Oriented x 3. No acute distress or SOB was noted. Bed in low position, side rails up x2, alarm and brake on. Call light and personal belongings within reach. Continue to monitor.
[2018-02-03 20:52] VITALS: BP 129/50
[2018-02-04] MEDS: IPRATROPIUM BROMIDE 0.5 MG/2.5 ML NEBU NEB SCH ×4 (01:07→18:59)
[2018-02-04] MEDS: ALBUTEROL SULFATE 2.5 MG/3 ML NEBU NEB SCH ×4 (01:07→18:59)
--- NOTE | 2018-02-04 05:15 | NUR ---
End of the shift report: Patient is at bed Awake and Alert Oriented x 3. No acute distress or SOB was noted. Pain assessed and reassessed after pain medication. Meds given as ordered. Complain of Rt leg cramp. Had a relatively good sleep throughout the night. All needs attended and anticipated. Bed in low position, side rails up x2, alarm and brake on. Call light and personal belongings within reach. Will endorse to morning shift accordingly.
[2018-02-04 05:19] VITALS: BP 148/60
[2018-02-04] MEDS: LEVOTHYROXINE SODIUM 75 MCG TABLET PO SCH (06:15)
[2018-02-04] MEDS: PANTOPRAZOLE SODIUM 40 MG TABLET.DR PO SCH (06:15)
[2018-02-04] MEDS: BLOOD SUGAR DIAGNOSTIC 1 EACH STRIP VI SCH ×4 (06:32→21:23)
[2018-02-04 08:00] VITALS: BP 154/53
[2018-02-04] MEDS: POTASSIUM CHLORIDE 20 MEQ TAB.PRT.SR PO SCH (08:48)
[2018-02-04] MEDS: DOCUSATE SODIUM 100 MG CAPSULE PO SCH ×2 (08:49→21:24)
[2018-02-04] MEDS: LOSARTAN POTASSIUM 50 MG TABLET PO SCH ×2 (08:49→16:52)
[2018-02-04] MEDS: FOLIC ACID 1 MG TABLET PO SCH (08:49)
[2018-02-04] MEDS: ASPIRIN 81 MG TAB.CHEW PO SCH (08:49)
[2018-02-04] MEDS: OMEGA-3 FATTY ACIDS/FISH OIL CAPSULE PO SCH ×2 (08:49→21:24)
[2018-02-04] MEDS: AMLODIPINE 5 MG TABLET PO SCH (08:50)
[2018-02-04] MEDS: FUROSEMIDE 40 MG TABLET PO SCH ×2 (08:50→16:52)
[2018-02-04] MEDS: INSULIN DETEMIR 300 UNIT/3 ML CARTRIDGE SQ SCH ×2 (08:52→21:25)
[2018-02-04] MEDS: INSULIN REGULAR, HUMAN 300 UNIT/3 ML VIAL SQ PRN ×2 (12:24→16:55)
[2018-02-04 16:34] VITALS: BP 128/38
[2018-02-04] MEDS: risperiDONE 0.5 MG TABLET PO SCH (16:52)
[2018-02-04] MEDS: RIVAROXABAN 15 MG TABLET PO SCH (16:53)
[2018-02-04] MEDS: ATORVASTATIN 10 MG TABLET PO SCH (16:53)
[2018-02-04 20:43] VITALS: BP 108/66
[2018-02-04] MEDS: ACETAMINOPHEN 325 MG TABLET PO PRN (21:24)
[2018-02-04] MEDS: INSULIN REGULAR, HUMAN 300 UNITS/3 ML VIAL SQ PRN (21:37)
[2018-02-05] MEDS: IPRATROPIUM BROMIDE 0.5 MG/2.5 ML NEBU NEB SCH ×4 (00:45→19:30)
[2018-02-05] MEDS: ALBUTEROL SULFATE 2.5 MG/3 ML NEBU NEB SCH ×4 (00:46→19:30)
[2018-02-05] MEDS: LEVOTHYROXINE SODIUM 75 MCG TABLET PO SCH (06:24)
[2018-02-05] MEDS: PANTOPRAZOLE SODIUM 40 MG TABLET.DR PO SCH (06:25)
[2018-02-05] MEDS: BLOOD SUGAR DIAGNOSTIC 1 EACH STRIP VI SCH ×4 (06:33→20:43)
[2018-02-05 06:41] VITALS: BP 139/84
[2018-02-05 07:47] LABS: CARBON DIOXIDE 27 mmol/L (21-32); CHLORIDE 104 mmol/L (98-107); CREATININE 1.7 mg/dL (0.6-1.3); GLUCOSE 226 mg/dL (74-106); POTASSIUM 4.2 mmol/L (3.5-5.1); UREA NITROGEN, BLOOD 59 mg/dL (7-18)
[2018-02-05 08:19] VITALS: BP 143/73
[2018-02-05] MEDS: AMLODIPINE 5 MG TABLET PO SCH (08:53)
[2018-02-05] MEDS: ACETAMINOPHEN 325 MG TABLET PO PRN ×2 (08:53→22:14)
[2018-02-05] MEDS: ASPIRIN 81 MG TAB.CHEW PO SCH (08:53)
[2018-02-05] MEDS: FOLIC ACID 1 MG TABLET PO SCH (08:54)
[2018-02-05] MEDS: DOCUSATE SODIUM 100 MG CAPSULE PO SCH ×2 (08:54→20:43)
[2018-02-05] MEDS: FUROSEMIDE 40 MG TABLET PO SCH ×2 (08:54→17:17)
[2018-02-05] MEDS: OMEGA-3 FATTY ACIDS/FISH OIL CAPSULE PO SCH ×2 (08:58→20:43)
[2018-02-05] MEDS: LOSARTAN POTASSIUM 50 MG TABLET PO SCH ×2 (08:58→17:00)
[2018-02-05] MEDS: POTASSIUM CHLORIDE 20 MEQ TAB.PRT.SR PO SCH (08:58)
[2018-02-05] MEDS: INSULIN DETEMIR 300 UNIT/3 ML CARTRIDGE SQ SCH ×2 (09:00→20:54)
--- NOTE | 2018-02-05 10:45 | NUR ---
Received patient awake, alert and orientedx3. Observe patient call attention from the staff, needy of something from her room. not in distress. will continue monitor
[2018-02-05] MEDS: INSULIN REGULAR, HUMAN 300 UNITS/3 ML VIAL SQ PRN ×2 (11:51→20:53)
--- NOTE | 2018-02-05 14:07 | NUR ---
PT REFUSED BREATHING TX AT 1317. NO SOB NOTED.
[2018-02-05 16:41] VITALS: BP 114/54
[2018-02-05] MEDS: ATORVASTATIN 10 MG TABLET PO SCH (17:17)
[2018-02-05] MEDS: risperiDONE 0.5 MG TABLET PO SCH (17:17)
[2018-02-05] MEDS: RIVAROXABAN 15 MG TABLET PO SCH (17:23)
[2018-02-05] MEDS: INSULIN REGULAR, HUMAN 300 UNIT/3 ML VIAL SQ PRN (17:24)
--- NOTE | 2018-02-05 19:47 | NUR ---
Received pt sleeping comfortably in bed. Aroused easily when called by name. No acute distress noted. No c/o pain or discomfort. Safety measures maintained. Call light and personal belongings within reach. Will continue to monitor.
[2018-02-05 21:21] VITALS: BP 151/75
[2018-02-06] MEDS: IPRATROPIUM BROMIDE 0.5 MG/2.5 ML NEBU NEB SCH ×4 (01:30→19:02)
[2018-02-06] MEDS: ALBUTEROL SULFATE 2.5 MG/3 ML NEBU NEB SCH ×4 (01:30→19:02)
[2018-02-06] MEDS: LEVOTHYROXINE SODIUM 75 MCG TABLET PO SCH (06:23)
[2018-02-06] MEDS: PANTOPRAZOLE SODIUM 40 MG TABLET.DR PO SCH (06:23)
[2018-02-06] MEDS: BLOOD SUGAR DIAGNOSTIC 1 EACH STRIP VI SCH ×4 (06:30→20:58)
--- NOTE | 2018-02-06 08:04 | NUR ---
Patient noted sitting up in bed, no complaints of pain noted, no signs of distress noted, call light in reach, bed locked and in lowest position, x 3 bed rails, all needs met at this time
[2018-02-06] MEDS: ASPIRIN 81 MG TAB.CHEW PO SCH (08:28)
[2018-02-06] MEDS: DOCUSATE SODIUM 100 MG CAPSULE PO SCH ×2 (08:28→20:58)
[2018-02-06] MEDS: POTASSIUM CHLORIDE 20 MEQ TAB.PRT.SR PO SCH (08:28)
[2018-02-06] MEDS: FUROSEMIDE 40 MG TABLET PO SCH ×2 (08:28→16:43)
[2018-02-06] MEDS: OMEGA-3 FATTY ACIDS/FISH OIL CAPSULE PO SCH ×2 (08:28→20:59)
[2018-02-06] MEDS: FOLIC ACID 1 MG TABLET PO SCH (08:28)
[2018-02-06] MEDS: INSULIN DETEMIR 300 UNIT/3 ML CARTRIDGE SQ SCH ×2 (08:33→21:00)
[2018-02-06] MEDS: INSULIN REGULAR, HUMAN 300 UNIT/3 ML VIAL SQ PRN ×2 (08:34→12:18)
[2018-02-06] MEDS: AMLODIPINE 5 MG TABLET PO SCH (08:35)
[2018-02-06] MEDS: LOSARTAN POTASSIUM 50 MG TABLET PO SCH ×2 (08:35→16:43)
[2018-02-06 15:59] VITALS: BP 141/58
[2018-02-06] MEDS: RIVAROXABAN 15 MG TABLET PO SCH (16:41)
[2018-02-06] MEDS: risperiDONE 0.5 MG TABLET PO SCH (16:43)
[2018-02-06] MEDS: ATORVASTATIN 10 MG TABLET PO SCH (16:43)
[2018-02-06] MEDS: ACETAMINOPHEN 325 MG TABLET PO PRN (16:48)
[2018-02-06 20:44] VITALS: BP 136/37
[2018-02-06] MEDS: INSULIN REGULAR, HUMAN 300 UNITS/3 ML VIAL SQ PRN (21:04)
[2018-02-07] MEDS: IPRATROPIUM BROMIDE 0.5 MG/2.5 ML NEBU NEB SCH ×2 (00:39→07:25)
[2018-02-07] MEDS: ALBUTEROL SULFATE 2.5 MG/3 ML NEBU NEB SCH ×2 (00:39→07:25)
--- NOTE | 2018-02-07 04:27 | NUR ---
Report received from day shift nurse . Pt had a blood sugar of 202 and received 4 units of humulin plus her scheduled dose of 22 units . No signs of distress during shift . Pt slept off / on throughout the night . Pt was calling out to staff throughout the night . Bed in low position , side rails up , alarm on bed , and wheels are in locked position.
[2018-02-07 05:53] VITALS: BP 139/50
[2018-02-07] MEDS: PANTOPRAZOLE SODIUM 40 MG TABLET.DR PO SCH (06:12)
[2018-02-07] MEDS: LEVOTHYROXINE SODIUM 75 MCG TABLET PO SCH (06:12)
[2018-02-07] MEDS: BLOOD SUGAR DIAGNOSTIC 1 EACH STRIP VI SCH (06:53)
[2018-02-07 08:00] VITALS: BP 160/63
[2018-02-07] MEDS: POTASSIUM CHLORIDE 20 MEQ TAB.PRT.SR PO SCH (08:17)
[2018-02-07] MEDS: OMEGA-3 FATTY ACIDS/FISH OIL CAPSULE PO SCH (08:17)
[2018-02-07 08:19] VITALS: BP 160/63
[2018-02-07] MEDS: DOCUSATE SODIUM 100 MG CAPSULE PO SCH (08:19)
[2018-02-07] MEDS: FUROSEMIDE 40 MG TABLET PO SCH (08:19)
[2018-02-07] MEDS: LOSARTAN POTASSIUM 50 MG TABLET PO SCH (08:19)
[2018-02-07] MEDS: FOLIC ACID 1 MG TABLET PO SCH (08:19)
[2018-02-07] MEDS: AMLODIPINE 5 MG TABLET PO SCH (08:19)
[2018-02-07] MEDS: ASPIRIN 81 MG TAB.CHEW PO SCH (08:20)
[2018-02-07] MEDS: INSULIN DETEMIR 300 UNIT/3 ML CARTRIDGE SQ SCH (08:22)
== END 2018-02-07 11:30 | disposition home health service (06) | DRG 291 ==
PROVIDERS: ADMIT Physical Medicine & Rehabilitation Pain Medicine; ATTEND Physical Medicine & Rehabilitation Pain Medicine
DX: I13.0 Hypertensive heart and chronic kidney disease with heart failure and stage 1 through stage 4 chronic kidney disease, or unspecified chronic kidney disease (principal); N17.0 Acute kidney failure with tubular necrosis; I50.33 Acute on chronic diastolic (congestive) heart failure; D68.59 Other primary thrombophilia; E44.0 Moderate protein-calorie malnutrition; E87.1 Hypo-osmolality and hyponatremia; N39.0 Urinary tract infection, site not specified; J44.9 Chronic obstructive pulmonary disease, unspecified; E03.9 Hypothyroidism, unspecified; E11.22 Type 2 diabetes mellitus with diabetic chronic kidney disease; I25.10 Atherosclerotic heart disease of native coronary artery without angina pectoris; N18.9 Chronic kidney disease, unspecified; Z68.35 Body mass index [BMI] 35.0-35.9, adult; F32.9 Major depressive disorder, single episode, unspecified; Z87.01 Personal history of pneumonia (recurrent); M19.90 Unspecified osteoarthritis, unspecified site; B96.1 Klebsiella pneumoniae [K. pneumoniae] as the cause of diseases classified elsewhere; B96.20 Unspecified Escherichia coli [E. coli] as the cause of diseases classified elsewhere; D64.9 Anemia, unspecified; E78.5 Hyperlipidemia, unspecified; E83.39 Other disorders of phosphorus metabolism; E83.51 Hypocalcemia; G89.29 Other chronic pain; K21.9 Gastro-esophageal reflux disease without esophagitis; L89.320 Pressure ulcer of left buttock, unstageable; L89.310 Pressure ulcer of right buttock, unstageable; M81.0 Age-related osteoporosis without current pathological fracture; Z86.711 Personal history of pulmonary embolism; Z86.718 Personal history of other venous thrombosis and embolism; Z86.73 Personal history of transient ischemic attack (TIA), and cerebral infarction without residual deficits; Z90.710 Acquired absence of both cervix and uterus; Z86.11 Personal history of tuberculosis; E11.65 Type 2 diabetes mellitus with hyperglycemia; E66.01 Morbid (severe) obesity due to excess calories; E11.21 Type 2 diabetes mellitus with diabetic nephropathy
CPT/HCPCS: 36415; 70030-TC; 71045; 83735; 84100; 84443; 85025; 85610; 87077; 87086; 92523; 92610; 94640; 94664; 97110; 97112; 97116; 97165; 97530; 97535; A4663; C1758; J1815; J3590